=== PATIENT | male | born 1975 | race Caucasian/White ===

== ENCOUNTER 2018-02-01 08:32 | Emergency (ER) | payer SELFPAY ==
[~2018-02-01] VITALS: Ht 180.3 cm; Wt 81.6 kg
[~2018-02-01 08:32] MED LIST: CITA20TA6 PO; DIVA-53 PO; DOCU-109 PO; METR500T PO; OMEP40CA5 PO; ONDA4TAB7 PO; SUCR1TAB PO; TRAZ-86 PO
[2018-02-01] MEDS ORDERED: ASPIRIN 325 MG TABLET PO ONE (10:00)
[2018-02-01 10:15] LABS: BASO % 1 % (0-3); EOS # 0.3 x10^3/uL (0.0-0.7); EOS % 3 % (0-3); HEMATOCRIT 48.1 % (39.0-53.0); HEMOGLOBIN 16.8 g/dL (13.0-17.5); LYMPH # 2.1 x10^3/uL (1.0-4.8); LYMPH % 26 % (24-48); MEAN CORPUSCULAR HEMOGLOBIN 32 pg (25-35); MEAN CORPUSCULAR HGB CONC 35 g/dL (31-37); MEAN CORPUSCULAR VOLUME 92 fL (79-100); MONO # 0.6 x10^3/uL (0.0-1.1); MONO % 7 % (0-9); NEUT % 63 % (31-73); PLATELET COUNT 217 x10^3/uL (140-400); RED BLOOD COUNT 5.24 x10^6/uL (4.30-5.70)
[2018-02-01] MEDS ORDERED: MORPHINE SULFATE 10 MG/ML VIAL. IV ONE (10:15)
--- NOTE | 2018-02-01 10:20 | RAD ---
Exam: AP portable chest History: Rib pain. Comparison: September 19, 2014. Findings: The heart and mediastinal structures are within normal limits for size. Lungs are without infiltrate. No pleural effusion or pneumothorax is identified. Impression: 1. No acute cardiopulmonary process. Electronically signed by: Finn Issa MD (02/01/2018 10:16 AM) [place] [id number]
--- NOTE | 2018-02-01 10:29 | EKG ---
[facility] [address] [place] [address] Test Date: 2018-02-01 Test Time: 10:09:07 Pat Name: RACHEL LOZOYA Department: Room: Gender: M Manager Engagement: : 1975 Requested By: HELEN REA Order Number: [id number] Reading MD: Ti Chowdary MD Measurements Intervals [place] Rate: 61 P: 49 MN: 156 QRS: 48 QRSD: 98 T: 44 QT: 370 QTc: 377 Interpretive Statements SINUS RHYTHM Electronically Signed On 02-02-2018 15:24:53 CDT by Ti Chowdary MD
[2018-02-01 10:31] LABS: CALCIUM 9.3 mg/dL (8.5-10.1); CREATININE 0.7 mg/dL (0.7-1.3); GFR 123.1; POTASSIUM 4.5 mmol/L (3.5-5.1)
[2018-02-01 10:34] LABS: ALBUMIN 3.9 g/dL (3.4-5.0); ALBUMIN/GLOBULIN RATIO 1.3 (1.0-1.7); MAGNESIUM 1.9 mg/dL (1.8-2.4); TOTAL BILIRUBIN 0.3 mg/dL (0.2-1.0); TOTAL PROTEIN 6.9 g/dL (6.4-8.2)
[2018-02-01 10:58] LABS: BILIRUBIN,URINE NEGATIVE (NEG); CLARITY,URINE CLEAR; COLOR,URINE YELLOW; NITRITE,URINE NEGATIVE (NEG); PH,URINE 5.5; PROTEIN,URINE NEGATIVE (NEG-TRACE)
[2018-02-01 11:03] LABS: BARBITURATES NEG (NEG); BENZODIAZEPINES NEG (NEG); CANNABINOIDS POS (NEG); COCAINE NEG (NEG); METHADONE NEG (NEG); OPIATES POS (NEG); PHENCYCLIDINE NEG (NEG)
[2018-02-01 11:05] LABS: AMPHETAMINE/METHAMPHETAMINE NEG (NEG)
[2018-02-01 11:19] LABS: BACTERIA,URINE 0 /HPF (0-FEW); RBC,URINE OCC /HPF (0-2); SQUAMOUS EPITHELIAL CELL,UR OCC /LPF; WBC,URINE OCC /HPF (0-4)
[2018-02-01] MEDS ORDERED: CYCL10TA2 PO (12:09)
[2018-02-01] MEDS ORDERED: NAPR-514 PO (12:09)
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
[2018-02-01 12:40] VITALS: BP 129/77
== END 2018-02-01 12:50 | disposition home or self-care (01) ==
LOC: ER 08:32
DX: R07.81 Pleurodynia (principal); F41.9 Anxiety disorder, unspecified; F31.9 Bipolar disorder, unspecified
CPT/HCPCS: 36415; 71045; 80053; 80307; 81001; 82553; 83735; 83880; 84443; 84484; 85025; 85379; 93005; 96372; 99285; G0480; J2270; G0479

== ENCOUNTER 2018-05-07 09:04 | Emergency (ER) | payer SELFPAY ==
[~2018-05-07] VITALS: Ht 180.3 cm; Wt 81.6 kg
[~2018-05-07 09:04] MED LIST changes: +CYCL10TA2 PO; +NAPR-514 PO
[2018-05-07 09:20] VITALS: BP 124/73
--- NOTE | 2018-05-07 09:39 | PHYS DOC ---
Past Medical History Past Medical History: Anxiety, Bipolar, Depression, Other Additional Past Medical Histor: hiatal hernia, colitis,PTSD Past Surgical History: Other Additional Past Surgical Histo: ears, nasal Additional Information: 1/2 PACK/DAY Alcohol Use: None Drug Use: Marijuana, Methamphetamine Adult General Chief Complaint Chief Complaint: KNEE INJURY HPI HPI 43-year-old male presents to ER with complaints of left knee pain which started yesterday. Patient denies injury or fall. 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 Patient reports he did feel a pop in his lt knee and since then has been having pain since. Patient denies swelling, numbness or tingling, or skin discoloration. Patient reports he has been walking without crutches or assistive device. Patient reports he took meloxicam one hour prior to arrival to ER and currently rates pain at 8/10. Pt denies any previous lt knee injury/ surg. Review of Systems Review of Systems Constitutional: Denies fever GI: Denies nausea, vomiting Musculoskeletal: Reports lt knee pain- denies swelling/calf pain Integument: Denies rash or skin lesions [] Neurologic: Denies numbness/tingling All other systems were reviewed and found to be within normal limits, except as documented in this note. Allergies Allergies Allergies Coded Allergies Type Severity Reaction Last Updated Verified No Known Drug Allergies 02/01/18 No Physical Exam Physical Exam Constitutional: Well developed, well nourished, no acute distress, non-toxic appearance. [] HENT: Normocephalic, atraumatic, oropharynx moist Eyes: Pupils equal, conjunctiva normal, no discharge. [] Neck: Normal range of motion, supple Cardiovascular:Heart rate regular Lungs & Thorax: Resp. equal/nonlabored Skin: Warm, dry, no erythema, no rash. [] Back: No tenderness, full ROM Extremities: Tender to palp. anterior knee- no palp. deformity w/full ROM. No tenderness on posterior knee exam- calf nontender. Dorsal pedis 2+. No cyanosis , no clubbing, no edema. [] Neurologic: Alert and oriented X 3, normal motor function, normal sensory function, no focal deficits noted. [] Psychologic: Affect normal, judgement normal, mood normal. [] Current Patient Data Vital Signs Vital Signs Date Time Temp Pulse Resp B/P (MAP) Pulse Ox O2 Delivery O2 Flow Rate FiO2 05/07/18 09:20 98.0 71 18 124/73 (90) 96 Room Air 98.0 EKG EKG [] Radiology/Procedures Radiology/Procedures PROCEDURE: KNEE LEFT 3V History: Injury loading truck previous day. Comparison: None. Findings: AP, lateral, and oblique views of the left knee. No acute fracture or dislocation is identified. No joint effusion is seen. No significant degeneration is identified. Impression: Unremarkable left knee radiographs. Electronically signed by: Finn Issa MD (05/07/2018 10:02 AM) [facility] DICTATED and SIGNED BY: FINN ISSA MD DATE: 05/07/18 1001 Course & Med Decision Making Course & Med Decision Making Pertinent Imaging studies reviewed. (See chart for details) 1028: Discussed imaging results from left knee x-ray with no acute findings. Discussed plans for Janusz wrap and knee immobilizer to left knee and patient to follow-up with orthopedic doctor for further care and evaluation. RICE acronym discussed. Pt remains neuro/vascular intact in left lower extremity. Patient is in no visible distress. Will provide orthopedic referral information on discharge paperwork. Patient advised on use of [id number] Tylenol and/or ibuprofen PRN as directed on container. Discharge instructions were discussed. Dragon Disclaimer Dragon Disclaimer This electronic medical record was generated, in whole or in part, using a voice recognition dictation system. Departure Departure Impression: Primary Impression: Knee pain, left Referrals: NO PCP (PCP) ZAKIA OSWALD MD orthopedic doctor Patient Instructions: Knee Immobilization, Knee Pain, Knee Wraps (Elastic Bandage) and RICE Additional Instructions: Tylenol and/or ibuprofen as needed for pain as directed on container. Follow-up with orthopedic doctor in next 3-5 days for further care/evaluation. TORO MARIA APRN May 07, 2018 09:39
--- NOTE | 2018-05-07 10:05 | RAD ---
History: Injury loading truck previous day. Comparison: None. Findings: AP, lateral, and oblique views of the left knee. No acute fracture or dislocation is identified. No joint effusion is seen. No significant degeneration is identified. Impression: Unremarkable left knee radiographs. Electronically signed by: Finn Issa MD (05/07/2018 10:02 AM) [facility]
== END 2018-05-07 10:40 | disposition home or self-care (01) ==
LOC: ER 09:04
DX: M25.562 Pain in left knee (principal); F41.9 Anxiety disorder, unspecified; F31.9 Bipolar disorder, unspecified; F17.200 Nicotine dependence, unspecified, uncomplicated
CPT/HCPCS: 73562; 99284